=== PATIENT | male | born 1935 | race Caucasian/White ===

== ENCOUNTER 2018-04-15 11:43 | Emergency (ER) | payer MEDICARE, BC, OTHER ==
[2018-04-15] MEDS: ACYCLOVIR 200 MG CAPSULE PO (12:45)
[2018-04-15] MEDS: ACETAMINOPHEN 325 MG TAB PO (12:46)
[2018-04-15] MEDS: METOCLOPRAMIDE 10 MG TAB PO (12:46)
== END 2018-04-15 12:57 | disposition home or self-care (01) ==
LOC: M ED 11:43
DX: B02.9 Zoster without complications (principal); G43.909 Migraine, unspecified, not intractable, without status migrainosus; E11.9 Type 2 diabetes mellitus without complications; I10 Essential (primary) hypertension; E78.00 Pure hypercholesterolemia, unspecified; Z98.890 Other specified postprocedural states; Z88.8 Allergy status to other drugs, medicaments and biological substances; Z88.1 Allergy status to other antibiotic agents; Z79.899 Other long term (current) drug therapy
CPT/HCPCS: 99282